=== PATIENT | female | born 1965 | race African-American/Black ===

== ENCOUNTER → 2017-12-06 | Outpatient (CLI) | payer OTHER ==
[~2017-12-06] VITALS: Ht 170.2 cm; Wt 95.7 kg
[~2017-12-06] MED LIST: COD LIVER OIL1 EACH PO; CRESTOR10 MG PO; DEPO-PROVER150 MG/ML IM; HYDROCHLOROTHIA25 MG PO; INVOKANA100 MG PO; PRAVACHOL80 MG PO; SOMA250 MG PO; TRICOR145 MG PO; ULTRAM50 MG PO; VICTOZA 2-0.6 MG/0.1 SC
== END | disposition home or self-care (01) ==
LOC: AMB 08:45
PROVIDERS: Internal Medicine
PROC: 0DBP8ZX Excision of Rectum, Via Natural or Artificial Opening Endoscopic, Diagnostic (ICD-10-PCS; principal; 2017-12-06)
DX: Z12.11 Encounter for screening for malignant neoplasm of colon (principal); K62.1 Rectal polyp; K57.30 Diverticulosis of large intestine without perforation or abscess without bleeding; I10 Essential (primary) hypertension; E11.9 Type 2 diabetes mellitus without complications; Z79.4 Long term (current) use of insulin; Z88.2 Allergy status to sulfonamides; Z88.5 Allergy status to narcotic agent
CPT/HCPCS: 82948; 88305; 93005; J2250